=== PATIENT | female | born 1940 | race Hispanic/Latino ===

== ENCOUNTER 2022-01-31 19:13 | Emergency (ER) | payer OTHER, MEDICARE ==
[2022-01-31 20:00] LABS: BASOPHILS % (AUTO) 0.5 % (0.0-5.0); EOSINOPHILS % (AUTO) 9.9 % (0.0-8.0); HEMATOCRIT 29.6 % (36-48); LYMPHOCYTES % (AUTO) 17.4 % (21.0-51.0); MEAN CORPUSCULAR HEMOGLOBIN 30.5 pg (27.0-33.0); MEAN CORPUSCULAR HGB CONC 30.1 g/dL (32.0-36.0); MEAN CORPUSCULAR VOLUME 101.4 fL (79-99); MONOCYTES % (AUTO) 7.5 % (3.0-13.0); NEUTROPHILS % (AUTO) 63.9 % (40.0-77.0); PLATELET COUNT (AUTO) 285 K/uL (130-400); RED BLOOD CELL COUNT(AUTO) 2.92 MIL/uL (4.00-5.50); RED CELL DISTRIBUTION WIDTH 16.7 % (11.0-15.5); WHITE BLOOD COUNT (AUTO) 10.1 K/uL (4.8-10.8)
[2022-01-31 20:14] LABS: CREATININE 1.9 mg/dL (0.5-1.5); POTASSIUM 3.8 mmol/L (3.5-5.1)
[2022-01-31 20:24] LABS: ALBUMIN 2.7 g/dL (3.5-5.0); BILIRUBIN,TOTAL 0.2 mg/dL (0.2-1.0)
[2022-01-31 21:37] LABS: APPEARANCE,URINE Cloudy (CLEAR); BILIRUBIN,URINE Negative (NEGATIVE); COLOR,URINE Yellow (YELLOW); GLUCOSE, URINE (UA) Negative (NEGATIVE); KETONES,URINE Negative (NEGATIVE); LEUKOCYTE ESTERASE ,URINE Small (NEGATIVE); NITRATE,URINE Negative (NEGATIVE); OCCULT BLOOD,URINE Negative (NEGATIVE); PROTEIN,URINE Trace mg/dL (NEGATIVE); UROBILINOGEN,URINE 0.2 mg/dL (0.2-1.0)
[2022-01-31 21:49] VITALS: BP 119/59
[2022-01-31 21:54] LABS: BACTERIA,URINE Few /HPF (None Seen); RBC,URINE 0-1 /HPF (0-1); YEAST,URINE BUDDING Few /HPF (None Seen)
[2022-01-31 21:55] LABS: COARSE GRANULAR CASTS,URINE 0-2 /LPF (None Seen); SQUAMOUS EPITHELIAL CELL,UR Rare /HPF (0-2)
[2022-01-31] MEDS ORDERED: DOXYCYCLINE HYCLATE 100 MG TABLET PO ONE (22:00)
[2022-01-31] MEDS ORDERED: DOXY-336 PO (22:20)
[2022-02-12] MEDS ORDERED: LEVO300T8 PO (10:49)
[2022-02-12] MEDS ORDERED: MIRT-120 PO (10:50)
[2022-02-12] MEDS ORDERED: POLY17PO52 PO (10:52)
[2022-02-12] MEDS ORDERED: FERR-72 PO (10:53)
[2022-02-12] MEDS ORDERED: MVIT PO (10:54)
[2022-02-12] MEDS ORDERED: OMEP20TA25 PO (10:55)
[2022-02-12] MEDS ORDERED: DONE-53 PO (10:56)
[2022-02-12] MEDS ORDERED: LACT10SO62 PO (10:59)
[2022-02-12] MEDS ORDERED: DOCU100C33 PO (11:00)
[2022-02-12] MEDS ORDERED: ACET325T51 PO (11:02)
[2022-02-12] MEDS ORDERED: MAAL30 PO (11:03)
== END 2022-02-01 01:52 ==
LOC: EDH 19:13
DX: R06.82 Tachypnea, not elsewhere classified (principal); G30.9 Alzheimer's disease, unspecified; F02.80 Dementia in other diseases classified elsewhere, unspecified severity, without behavioral disturbance, psychotic disturbance, mood disturbance, and anxiety; E03.9 Hypothyroidism, unspecified; Z20.822 Contact with and (suspected) exposure to COVID-19; Z86.16 Personal history of COVID-19; Z87.440 Personal history of urinary (tract) infections
CPT/HCPCS: 36415; 71045; 80053; 81001; 84484; 85025; 87635; 93005; 99285; C9803